=== PATIENT | male | born 1960 | race Caucasian/White ===

== ENCOUNTER 2018-11-20 18:39 | Inpatient (IN) ==
[2018-11-20] MEDS ORDERED: KETOROLAC 30 MG/1 ML VIAL IV STA (19:19)
[2018-11-20] MEDS ORDERED: ONDANSETRON 4 MG/2 ML VIAL IV STA ×2 (19:19→20:25)
[2018-11-20] MEDS ORDERED: PANTOPRAZOLE 40 MG VIAL IV STA (19:19)
[2018-11-20 19:39] LABS: Basophils # 0.1 10*3/uL (0.0-0.2); Basophils % 0.6 % (0.0-0.8); Eosinophils # 0.1 10*3/uL (0.0-0.87); Eosinophils % 1.2 % (0.00-10.9); Hematocrit 42.1 VOL% (42.0-52.0); Hemoglobin 14.2 GM/DL (14.0-18.0); Immature Granulocytes % 0.9 %; Immature Granulocytes Absolute 0.08 #; Lymphocytes # 1.5 10*3/uL (1.4-4.0); Lymphocytes % 15.9 % (21.2-54.2); Mean Corpuscular HGB Conc 33.7 GM/DL (32-36); Mean Corpuscular Hemoglobin 33 PG (27-34); Mean Corpuscular Volume 96.6 FL (87-102); Monocytes # 0.7 10*3/uL (0.11-0.8); Monocytes % 6.9 % (1.7-12.7); Neutrophils % 74.5 % (38.7-73.9); Platelet Count 328 T/CUMM (130-400); Red Blood Count 4.36 MC/CUMM (3.8-5.5); Red Cell Distribution Width 15.1 % (9.3-17.3); White Blood Count 9.4 T/CUMM (4-12)
[2018-11-20] MEDS: THIAMINE INJ 100 MG, FOLIC ACID INJ 1 MG, MULTIVITAMIN INJ 10 ML in SODIUM CHLORIDE 0.9... IV SCH (19:55)
[2018-11-20 19:58] LABS: PT Patient Result 10.6 SECS; Partial Thromboplastin Time 24.8 SECS (0-40)
[2018-11-20 20:17] LABS: Apearance,Urine CLEAR (Clear); Bilirubin,Urine Negative (Negative); Blood, Urine Small mg/dL (Negative); Glucose,Urine (UA) Negative (Negative); Hyaline Casts,Urine 3 /LPF (0-3); Ketones,Urine 5 mg/dL (Negative); Mucus,Urine Occasional /LPF (Occasional); Nitrite,Urine Negative (Negative); Protein,Urine 30 MG/DL; RBC,Urine 2 /HPF (0-4); Squamous Epithelial Cell,Urine Occasional /HPF (0-10); Urine Color Yellow (Yellow); Urine Specific Gravity 1.014 (1.001-1.035); WBC,Urine 2 /HPF (0-6)
[2018-11-20 20:21] LABS: Barbiturates Screen,Urine Negative (Negative); Benzodiazepines Screen,Urine Negative (Negative); Cannabinoid Screen,Urine Negative (Negative); Opiate Screen,Urine Negative (Negative); Phencyclidine Screen,Urine Negative (Negative)
[2018-11-20] MEDS ORDERED: fentaNYL 100 MCG/2 ML VIAL IV STA (20:25)
[2018-11-20 20:56] LABS: Alanine Aminotransferase 9 U/L (16-61); Albumin 3.5 G/DL (3.4-5.0); Alkaline Phosphatase 106 U/L (45-117); Aspartate Amino Transferase 14 U/L (0-37); Bilirubin,Total < 0.39 MG/DL (0.2-1.0); Blood Urea Nitrogen 8 MG/DL (7-18); Calcium 8.4 MG/DL (8.5-10.1); Glucose 100 MG/DL (74-106); Osmolality,Calculated 278.3 MOS/KG (273-304); Potassium 4.1 MMOL/L (3.5-5.1); Sodium 141 MMOL/L (136-145); Total Protein 7.8 G/DL (6.4-8.3); Troponin I < 0.015 NG/ML (0.00-0.045)
[2018-11-20] MEDS ORDERED: ENOXAPARIN 100 MG/ML SYRINGE SUBCUT STA (21:38)
[2018-11-20] MEDS ORDERED: LORazepam 2 MG/1 ML VIAL ONE (21:47)
[2018-11-20] MEDS ORDERED: LORazepam 2 MG/1 ML VIAL IV STA (21:48)
[2018-11-20] MEDS ORDERED: ONDANSETRON 4 MG/2 ML VIAL IV PRN (22:54)
[2018-11-20] MEDS ORDERED: MORPHINE 4 MG/1 ML VIAL IV PRN (22:54)
[2018-11-20] MEDS ORDERED: BISACODYL 5 MG TABLET PO PRN (22:54)
[2018-11-20] MEDS ORDERED: ACETAMINOPHEN 325 MG TABLET PO PRN (22:54)
[2018-11-20] MEDS: SODIUM CHLORIDE 0.9% 1,000 ML IV SCH (23:00)
[2018-11-21] MEDS: LORazepam 2 MG/1 ML VIAL IV PRN ×4 (04:26→20:40)
[2018-11-21] MEDS: SODIUM CHLORIDE 0.9% 1,000 ML IV SCH ×3 (04:50→20:37)
[2018-11-21 05:03] LABS: Basophils # 0.1 10*3/uL (0.0-0.2); Basophils % 0.8 % (0.0-0.8); Eosinophils # 0.2 10*3/uL (0.0-0.87); Eosinophils % 2.5 % (0.00-10.9); Hematocrit 37.8 VOL% (42.0-52.0); Hemoglobin 12.2 GM/DL (14.0-18.0); Immature Granulocytes % 0.6 %; Immature Granulocytes Absolute 0.05 #; Lymphocytes # 1.4 10*3/uL (1.4-4.0); Lymphocytes % 18.3 % (21.2-54.2); Mean Corpuscular HGB Conc 32.3 GM/DL (32-36); Mean Corpuscular Hemoglobin 32 PG (27-34); Mean Platelet Volume 9.4 FL (9.6-12.0); Monocytes # 0.9 10*3/uL (0.11-0.8); Monocytes % 11.2 % (1.7-12.7); Neutrophils # 5.3 10*3/uL (1.4-7.4); Neutrophils % 66.6 % (38.7-73.9); Platelet Count 300 T/CUMM (130-400); Red Blood Count 3.82 MC/CUMM (3.8-5.5); Red Cell Distribution Width 14.8 % (9.3-17.3); White Blood Count 7.9 T/CUMM (4-12)
[2018-11-21 05:22] LABS: Calcium 7.9 MG/DL (8.5-10.1); Osmolality,Calculated 277.4 MOS/KG (273-304); Potassium 3.8 MMOL/L (3.5-5.1)
[2018-11-21] MEDS: ENOXAPARIN 100 MG/ML SYRINGE SUBCUT SCH ×2 (08:40→20:38)
[2018-11-21] MEDS: PANTOPRAZOLE 40 MG TABLET PO SCH (08:40)
[2018-11-21] MEDS: chlordiazePOXIDE 25 MG CAPSULE PO PRN ×2 (11:42→20:38)
[2018-11-21] MEDS: NICOTINE 21 MG/24 HR PATCH TRANSDERM PRN (12:18)
[2018-11-21] MEDS ORDERED: WARFARIN 2 MG TABLET PO SCH (18:00)
[2018-11-21] MEDS ORDERED: WARFARIN 5 MG TABLET PO SCH (18:00)
[2018-11-22] MEDS: LORazepam 2 MG/1 ML VIAL IV PRN ×4 (01:35→19:19)
[2018-11-22] MEDS: THIAMINE INJ 100 MG, FOLIC ACID INJ 1 MG, MULTIVITAMIN INJ 10 ML in SODIUM CHLORIDE 0.9... IV SCH (01:53)
[2018-11-22 05:32] LABS: Basophils # 0.1 10*3/uL (0.0-0.2); Basophils % 0.6 % (0.0-0.8); Eosinophils # 0.3 10*3/uL (0.0-0.87); Eosinophils % 3.9 % (0.00-10.9); Hematocrit 39.8 VOL% (42.0-52.0); Immature Granulocytes % 0.6 %; Immature Granulocytes Absolute 0.05 #; Lymphocytes # 1.6 10*3/uL (1.4-4.0); Mean Corpuscular HGB Conc 32.7 GM/DL (32-36); Mean Corpuscular Hemoglobin 32 PG (27-34); Mean Corpuscular Volume 98.3 FL (87-102); Mean Platelet Volume 9.5 FL (9.6-12.0); Monocytes # 0.8 10*3/uL (0.11-0.8); Monocytes % 8.8 % (1.7-12.7); Neutrophils # 5.9 10*3/uL (1.4-7.4); Neutrophils % 68.1 % (38.7-73.9); Platelet Count 298 T/CUMM (130-400); Red Blood Count 4.05 MC/CUMM (3.8-5.5); Red Cell Distribution Width 14.7 % (9.3-17.3); White Blood Count 8.7 T/CUMM (4-12)
[2018-11-22 06:01] LABS: Calcium 8.9 MG/DL (8.5-10.1); Osmolality,Calculated 276.4 MOS/KG (273-304); Potassium 3.7 MMOL/L (3.5-5.1)
[2018-11-22] MEDS: SODIUM CHLORIDE 0.9% 1,000 ML IV SCH ×3 (06:52→21:10)
[2018-11-22] MEDS: chlordiazePOXIDE 25 MG CAPSULE PO PRN (07:47)
[2018-11-22] MEDS ORDERED: THIAMINE INJ 100 MG, FOLIC ACID INJ 1 MG, MULTIVITAMIN INJ 10 ML in SODIUM CHLORIDE 0.9... IV ONE (09:02)
[2018-11-22] MEDS: ENOXAPARIN 100 MG/ML SYRINGE SUBCUT SCH ×2 (09:05→21:42)
[2018-11-22] MEDS: PANTOPRAZOLE 40 MG TABLET PO SCH (09:06)
[2018-11-22] MEDS: THIAMINE 200 MG/2 ML VIAL IV SCH (09:06)
[2018-11-22] MEDS ORDERED: WARFARIN 7.5 MG TABLET PO SCH (18:00)
[2018-11-23] MEDS: LORazepam 2 MG/1 ML VIAL IV PRN ×5 (02:10→20:26)
[2018-11-23 04:50] LABS: Basophils % 0.6 % (0.0-0.8); Eosinophils # 0.2 10*3/uL (0.0-0.87); Eosinophils % 3.5 % (0.00-10.9); Hematocrit 37.7 VOL% (42.0-52.0); Hemoglobin 12.3 GM/DL (14.0-18.0); Immature Granulocytes % 0.6 %; Immature Granulocytes Absolute 0.04 #; Lymphocytes # 1.2 10*3/uL (1.4-4.0); Lymphocytes % 17.2 % (21.2-54.2); Mean Corpuscular HGB Conc 32.6 GM/DL (32-36); Mean Corpuscular Hemoglobin 32 PG (27-34); Mean Corpuscular Volume 98.7 FL (87-102); Mean Platelet Volume 9.5 FL (9.6-12.0); Monocytes # 0.6 10*3/uL (0.11-0.8); Monocytes % 8.2 % (1.7-12.7); Neutrophils # 4.8 10*3/uL (1.4-7.4); Neutrophils % 69.9 % (38.7-73.9); Platelet Count 247 T/CUMM (130-400); Red Blood Count 3.82 MC/CUMM (3.8-5.5); Red Cell Distribution Width 14.7 % (9.3-17.3); White Blood Count 6.9 T/CUMM (4-12)
[2018-11-23 04:55] LABS: PT Patient Result 11.2 SECS
[2018-11-23 05:09] LABS: Calcium 8.4 MG/DL (8.5-10.1); Potassium 3.6 MMOL/L (3.5-5.1)
[2018-11-23] MEDS: NICOTINE 21 MG/24 HR PATCH TRANSDERM PRN (07:43)
[2018-11-23] MEDS: SODIUM CHLORIDE 0.9% 1,000 ML IV SCH ×2 (07:54→18:00)
[2018-11-23] MEDS: ENOXAPARIN 100 MG/ML SYRINGE SUBCUT SCH ×2 (08:15→20:47)
[2018-11-23] MEDS: chlordiazePOXIDE 25 MG CAPSULE PO PRN (08:15)
[2018-11-23] MEDS: THIAMINE 200 MG/2 ML VIAL IV SCH (08:15)
[2018-11-23] MEDS: PANTOPRAZOLE 40 MG TABLET PO SCH (08:15)
[2018-11-23] MEDS: THIAMINE INJ 100 MG, FOLIC ACID INJ 1 MG, MULTIVITAMIN INJ 10 ML in SODIUM CHLORIDE 0.9... IV SCH (11:20)
[2018-11-23] MEDS: WARFARIN 10 MG TABLET PO SCH (18:45)
[2018-11-24] MEDS: chlordiazePOXIDE 25 MG CAPSULE PO PRN ×3 (03:02→15:19)
[2018-11-24] MEDS: SODIUM CHLORIDE 0.9% 1,000 ML IV SCH (04:00)
[2018-11-24 05:31] LABS: Basophils # 0.1 10*3/uL (0.0-0.2); Basophils % 0.7 % (0.0-0.8); Eosinophils # 0.3 10*3/uL (0.0-0.87); Eosinophils % 4.3 % (0.00-10.9); Hematocrit 36.3 VOL% (42.0-52.0); Hemoglobin 11.8 GM/DL (14.0-18.0); Immature Granulocytes % 0.7 %; Immature Granulocytes Absolute 0.05 #; Lymphocytes # 1.4 10*3/uL (1.4-4.0); Lymphocytes % 19.6 % (21.2-54.2); Mean Corpuscular HGB Conc 32.5 GM/DL (32-36); Mean Corpuscular Hemoglobin 32 PG (27-34); Mean Corpuscular Volume 98.9 FL (87-102); Mean Platelet Volume 9.8 FL (9.6-12.0); Monocytes # 0.5 10*3/uL (0.11-0.8); Neutrophils # 4.9 10*3/uL (1.4-7.4); Neutrophils % 67.7 % (38.7-73.9); Platelet Count 225 T/CUMM (130-400); Red Blood Count 3.67 MC/CUMM (3.8-5.5); Red Cell Distribution Width 14.6 % (9.3-17.3); White Blood Count 7.2 T/CUMM (4-12)
[2018-11-24 05:36] LABS: INR 1.1; PT Patient Result 11.7 SECS
[2018-11-24] MEDS ORDERED: LORazepam 2 MG/1 ML VIAL IV PRN (09:20)
[2018-11-24] MEDS: PANTOPRAZOLE 40 MG TABLET PO SCH (10:18)
[2018-11-24] MEDS: ENOXAPARIN 100 MG/ML SYRINGE SUBCUT SCH ×2 (10:19→21:11)
[2018-11-24] MEDS: THIAMINE INJ 100 MG, FOLIC ACID INJ 1 MG, MULTIVITAMIN INJ 10 ML in SODIUM CHLORIDE 0.9... IV SCH (11:32)
[2018-11-24] MEDS ORDERED: DIAZEPAM 5 MG TABLET PO PRN (17:22)
[2018-11-24] MEDS ORDERED: diphenhydrAMINE 50 MG/1 ML VIAL IV ONE (17:22)
[2018-11-24] MEDS ORDERED: LORazepam 2 MG/1 ML VIAL IV ONE (17:23)
[2018-11-24] MEDS: chlordiazePOXIDE 25 MG CAPSULE PO SCH ×2 (18:38→23:48)
[2018-11-24] MEDS: WARFARIN 10 MG TABLET PO SCH (18:39)
[2018-11-25] MEDS: LORazepam 2 MG/1 ML VIAL IV PRN ×4 (00:28→20:02)
[2018-11-25 04:36] LABS: Basophils % 0.5 % (0.0-0.8); Eosinophils # 0.3 10*3/uL (0.0-0.87); Hemoglobin 12.2 GM/DL (14.0-18.0); Immature Granulocytes % 1.3 %; Lymphocytes # 1.6 10*3/uL (1.4-4.0); Lymphocytes % 20.9 % (21.2-54.2); Mean Corpuscular Hemoglobin 32 PG (27-34); Mean Corpuscular Volume 97.6 FL (87-102); Mean Platelet Volume 9.8 FL (9.6-12.0); Monocytes # 0.6 10*3/uL (0.11-0.8); Monocytes % 7.6 % (1.7-12.7); Neutrophils # 4.9 10*3/uL (1.4-7.4); Neutrophils % 65.7 % (38.7-73.9); Platelet Count 209 T/CUMM (130-400); Red Blood Count 3.79 MC/CUMM (3.8-5.5); Red Cell Distribution Width 14.7 % (9.3-17.3); White Blood Count 7.4 T/CUMM (4-12)
[2018-11-25 04:56] LABS: INR 1.3; PT Patient Result 13.8 SECS
[2018-11-25] MEDS: chlordiazePOXIDE 25 MG CAPSULE PO SCH (06:08)
[2018-11-25] MEDS: PANTOPRAZOLE 40 MG TABLET PO SCH (08:17)
[2018-11-25] MEDS: ENOXAPARIN 100 MG/ML SYRINGE SUBCUT SCH ×2 (08:17→20:05)
[2018-11-25] MEDS: diphenhydrAMINE CAP 25 MG CAPSULE PO PRN ×3 (08:17→20:02)
[2018-11-25] MEDS ORDERED: chlordiazePOXIDE 25 MG CAPSULE PO PRN (10:31)
[2018-11-25] MEDS: THIAMINE INJ 100 MG, FOLIC ACID INJ 1 MG, MULTIVITAMIN INJ 10 ML in SODIUM CHLORIDE 0.9... IV SCH ×2 (11:28→13:44)
[2018-11-25] MEDS: chlordiazePOXIDE 25 MG CAPSULE PO PRN ×3 (11:28→23:06)
[2018-11-25] MEDS ORDERED: LORazepam 2 MG/1 ML VIAL IM PRN (11:40)
[2018-11-25] MEDS: WARFARIN 10 MG TABLET PO SCH (17:58)
[2018-11-26] MEDS: LORazepam 2 MG/1 ML VIAL IV PRN ×3 (03:14→14:11)
[2018-11-26] MEDS: diphenhydrAMINE CAP 25 MG CAPSULE PO PRN (09:16)
[2018-11-26] MEDS: PANTOPRAZOLE 40 MG TABLET PO SCH (09:16)
[2018-11-26] MEDS: THIAMINE INJ 100 MG, FOLIC ACID INJ 1 MG, MULTIVITAMIN INJ 10 ML in SODIUM CHLORIDE 0.9... IV SCH (09:17)
[2018-11-26] MEDS: chlordiazePOXIDE 25 MG CAPSULE PO PRN (09:17)
[2018-11-26] MEDS: ENOXAPARIN 100 MG/ML SYRINGE SUBCUT SCH ×2 (09:17→20:50)
[2018-11-26] MEDS: BACLOFEN 10 MG TABLET PO SCH ×2 (14:11→20:35)
[2018-11-26] MEDS: chlordiazePOXIDE 25 MG CAPSULE PO SCH ×2 (14:11→20:35)
[2018-11-26] MEDS: WARFARIN 10 MG TABLET PO SCH (17:27)
[2018-11-27 04:56] LABS: INR 1.5; PT Patient Result 15.9 SECS
[2018-11-27] MEDS: chlordiazePOXIDE 25 MG CAPSULE PO SCH ×3 (08:40→21:01)
[2018-11-27] MEDS: PANTOPRAZOLE 40 MG TABLET PO SCH (08:40)
[2018-11-27] MEDS: ENOXAPARIN 100 MG/ML SYRINGE SUBCUT SCH ×2 (08:40→21:02)
[2018-11-27] MEDS: BACLOFEN 10 MG TABLET PO SCH ×3 (08:40→21:01)
[2018-11-27] MEDS: THIAMINE INJ 100 MG, FOLIC ACID INJ 1 MG, MULTIVITAMIN INJ 10 ML in SODIUM CHLORIDE 0.9... IV SCH (09:40)
[2018-11-27] MEDS: WARFARIN 10 MG TABLET PO SCH (17:44)
[2018-11-28 05:29] LABS: INR 1.9; PT Patient Result 20.6 SECS
[2018-11-28 05:30] LABS: Basophils % 0.6 % (0.0-0.8); Eosinophils # 0.3 10*3/uL (0.0-0.87); Hematocrit 38.8 VOL% (42.0-52.0); Immature Granulocytes % 0.4 %; Immature Granulocytes Absolute 0.03 #; Lymphocytes # 1.3 10*3/uL (1.4-4.0); Lymphocytes % 19.5 % (21.2-54.2); Mean Corpuscular HGB Conc 33.5 GM/DL (32-36); Mean Corpuscular Hemoglobin 32 PG (27-34); Mean Corpuscular Volume 96.8 FL (87-102); Mean Platelet Volume 11.6 FL (9.6-12.0); Monocytes # 0.5 10*3/uL (0.11-0.8); Monocytes % 6.6 % (1.7-12.7); Neutrophils # 4.7 10*3/uL (1.4-7.4); Neutrophils % 68.9 % (38.7-73.9); Red Blood Count 4.01 MC/CUMM (3.8-5.5); Red Cell Distribution Width 15.2 % (9.3-17.3); White Blood Count 6.8 T/CUMM (4-12)
[2018-11-28 05:32] LABS: Platelet Count 195 T/CUMM (130-400)
[2018-11-28 05:38] LABS: Calcium 8.5 MG/DL (8.5-10.1); Osmolality,Calculated 276.3 MOS/KG (273-304); Potassium 3.4 MMOL/L (3.5-5.1)
[2018-11-28 06:05] LABS: Platelet Estimate Adequate
[2018-11-28 06:06] LABS: Polychromasia Few
[2018-11-28] MEDS: BACLOFEN 10 MG TABLET PO SCH (08:28)
[2018-11-28] MEDS: ENOXAPARIN 100 MG/ML SYRINGE SUBCUT SCH (08:28)
[2018-11-28] MEDS: PANTOPRAZOLE 40 MG TABLET PO SCH (08:28)
[2018-11-28] MEDS: chlordiazePOXIDE 25 MG CAPSULE PO SCH (08:28)
[2018-11-28] MEDS ORDERED: POTASSIUM CHLORIDE 20 MEQ TABLET PO ONE (09:57)
[2018-11-28] MEDS: THIAMINE INJ 100 MG, FOLIC ACID INJ 1 MG, MULTIVITAMIN INJ 10 ML in SODIUM CHLORIDE 0.9... IV SCH (10:57)
[2018-11-28 11:57] VITALS: BP 136/102
== END 2018-11-28 11:45 | DRG 176 ==
LOC: N.ED 18:39 → N.EDINP 22:54 → SUATTDRO 22:54 → N.TELES 11-21 00:10 → N.CC 11-22 08:44 → N.2E 11-24 13:35
PROVIDERS: ADMIT Family Medicine; ATTEND Internal Medicine